=== PATIENT | male | born 1980 | race Caucasian/White ===

== ENCOUNTER 2018-03-12 12:42 | Emergency (ER) | payer OTHER ==
[~2018-03-12] VITALS: Ht 177.8 cm; Wt 87.3 kg
[2018-03-12 12:48] VITALS: BP 143/83; TEMP 97.7
[2018-03-12] MEDS ORDERED: CEPHALEXIN500 M1 PO (14:34)
[2018-03-12 14:48] VITALS: PULSE 68
== END 2018-03-12 14:48 | disposition home or self-care (01) ==
LOC: COL.ER 12:42
DX: S51.012A Laceration without foreign body of left elbow, initial encounter (principal); W26.8XXA Contact with other sharp object(s), not elsewhere classified, initial encounter; Y92.89 Other specified places as the place of occurrence of the external cause

== ENCOUNTER 2018-03-21 08:00 | Outpatient (RCR) | payer OTHER ==
[~2018-03-21 08:00] MED LIST: CEPHALEXIN500 M1 PO
== END 2018-06-10 | disposition home or self-care (01) ==
LOC: WSOH
DX: S51.011A Laceration without foreign body of right elbow, initial encounter (principal); Z23 Encounter for immunization; W26.8XXA Contact with other sharp object(s), not elsewhere classified, initial encounter; Y93.H3 Activity, building and construction; Y99.0 Civilian activity done for income or pay